=== PATIENT | female | born 1980 | race Caucasian/White ===

== ENCOUNTER 2021-01-27 20:30 | Emergency (ER) | payer OTHER ==
--- NOTE | 2021-01-27 20:52 | EDM.PDOC ---
ED HPI GENERAL MEDICAL PROBLEM - General Chief Complaint: Head Injury Stated Complaint: RIGHT FACIAL INJURY S/P SEIZURE Time Seen by Provider: 01/27/21 20:30 Source of Information: Reports: Patient, Family History Limitations: Reports: No Limitations - History of Present Illness INITIAL COMMENTS - FREE TEXT/NARRATIVE: Patient presents ambulatory for seizure and head/facial injury. Lives with family and was upstairs on the toilet when family heard a liliana thump. They found her unconscious on the floor of the bathroom and had just defecated. Had some general seizure activity and was post ictal for about 15 minutes. Typical pattern for her seizures. Patient has a seizure history on Topamax and Trileptal for this. Sees neurology and has had four seizures in the last month. She did call after the last several seizures and has appointment with neurology next month. Has been taking her medications, recent levels taken reveal normal levels. Has not been drinking alcohol, but smokes marijuana once weekly. Has been ill recently with an infected right lower tooth and is on clindamycin. Recently not sleeping well. Was recently hospitalized for mental health and was given zyprexa for breakthrough problems. Did take some this week. Feels " off" lately, dizzy at times. not ill, no fevers, vomiting, diarrhea or pain. Thinks her tetanus is up to date. Only pain is in the right orbital area. has some abrasions on the right great toe and the left fifth finger. small abrasion right upper lip. ambulating well Onset: Today, Sudden Duration: Minutes:, Resolved Prior to Arrival Location: Reports: Face Severity: Mild Associated Symptoms: Reports: Seizure Treatments HIDE CURER: Reports: NSAIDS Right Face/Facial Pain Score (Numeric/FACES): 9 - Related Data Allergies Allergy/AdvReac Type Severity Reaction Status Date / Time codeine Allergy unknown Verified 01/27/21 20:31 procaine [From Novocain] Allergy unknown Verified 01/27/21 20:31 Home Meds: Home Meds FLUoxetine [PROzac] 80 mg PO QAM 01/14/21 [History] LORazepam [Ativan] 0.5 mg PO BID PRN 01/14/21 [History] OLANZapine [Zyprexa] 5 mg PO Q6HR PRN 01/14/21 [History] OXcarbazepine [Trileptal] 300 mg PO BID 01/14/21 [History] Prazosin HCl [Prazosin] 2 mg PO BEDTIME 01/14/21 [History] Prazosin [Minpress] 1 mg PO BEDTIME 01/14/21 [History] SUMAtriptan succinate [Imitrex] 100 mg PO ASDIRECTED PRN 01/14/21 [History] Topiramate 25 mg PO BID 01/14/21 [History] Topiramate 100 mg PO BID 01/14/21 [History] hydrOXYzine pamoate [Vistaril] 25 mg PO QID PRN 01/14/21 [History] Clindamycin HCl 300 mg PO QID 01/27/21 [History] Past Medical History Neurological History: Reports: Seizure Psychiatric History: Reports: Anxiety, Depression Social & Family History - Alcohol Use Alcohol Use History: No Alcohol Use in Last Twelve Months: No - Recreational Drug Use Recreational Drug Use: No Drug Use in Last 12 Months: No Recreational Drug Type: Reports: Marijuana/Hashish ED ROS GENERAL - Review of Systems Review Of Systems: See Below HEENT: Reports: Dental Pain (rigth lower, improving on antibiotics), Eye Pain (periorbital from fall) Respiratory: Reports: No Symptoms. Denies: Shortness of Breath, Cough Cardiovascular: Reports: No Symptoms. Denies: Chest Pain, Blood Pressure Problem, Dyspnea on Exertion Endocrine: Reports: No Symptoms GI/Abdominal: Reports: No Symptoms. Denies: Abdominal Pain, Nausea, Vomiting : Denies: Discharge, Dysuria, Flank Pain Musculoskeletal: Denies: Neck Pain, Foot Pain, Muscle Pain, Muscle Stiffness Skin: Reports: Other (abrasion to right great toe, left fifth finger) Neurological: Reports: Dizziness, Seizure. Denies: Confusion, Syncope, Tremors, Trouble Speaking, Difficulty Walking Psychiatric: Reports: Mood Lability ED EXAM, HEAD INJURY - Physical Exam Exam: See Below Exam Limited By: No Limitations General Appearance: Alert, No Apparent Distress Head: Facial Ecchymosis, Facial Swelling (right orbital and zygomatic area with abrasion. no laceration, no step off) Nexus Criteria: No: Posterior, Midline Cervical Tenderness, Evidence of Intoxication, Altered Level of Consciousness (resolved after seizure), Focal Neurological Deficit, Painful Distraction Injuries Eyes: Right Eye: Periorbital Changes (swelling and abrasion as documented above), Bilateral Eye: EOMI, PERRL Ears: Normal External Exam, Normal Canal, Hearing Grossly Normal, Normal TMs Nose: Normal Inspection, Normal Mucousa, No Blood. No: Septal Deformity, Septal Hematoma, Septal Perforation Throat/Mouth: Normal Voice, No Airway Compromise, Other (missing teeth, right lower molar with broken tooth at gum line. no abscess/. right upper lip with small abrasion ,not suturable). No: Muffled Voice, Pharyngeal Erythema, Tongue Swelling Neck: Non-Tender, Full Range of Motion, Normal Alignment, Normal Inspection. No: Limited Range of Motion, Painful Range of Motion, Paraspinous Muscle Tender, Spinous Processes Tender Respiratory: No Respiratory Distress, Lungs Clear, Normal Breath Sounds, No Accessory Muscle Use, Chest Non-Tender Cardiovascular: Normal Peripheral Pulses, Regular Rate, Rhythm, No Edema, No Murmur GI/Abdominal Exam: Normal Bowel Sounds, Soft, Non-Tender, No Abnormal Bruit (Female) Exam: Deferred Back Exam: Normal Inspection, Full Range of Motion. No: CVA Tenderness (L), CVA Tenderness (R) Neurologic: sales account leader II-XII nml As Tested, No Motor/Sensory Deficits, Alert, Oriented x 3, Abnormal Cerebellar Tests (slight sway with pronator drift, difficult finger to nose bilaterally, but can achieve. Normal SHANTA, normal heel to lowry). No: Abnormal Gait Skin: Other (abrasions to the right great toe, dorsal surface, no limted ROM, no bleeding. small abrasion to the left 5th finger dorsal surface at PIP, no limted rom no active bleeding) - Amanda Coma Score Best Eye Response ([place]): (4) Open Spontaneously Best Verbal Response (Amanda): (5) Oriented Best Motor Response ([place]): (6) Obeys Commands Course - Vital Signs Last Recorded V/S: Last Vital Signs Temp 37.2 C 01/27/21 20:34 Pulse 85 01/27/21 21:28 Resp 16 01/27/21 20:34 BP 147/69 H 01/27/21 21:28 Pulse Ox 100 01/27/21 20:34 - Orders/Labs/Meds Orders: Active Orders 24 hr Category Date Time Status Head wo Cont [CT] Stat Exams 01/27/21 20:42 Taken Maxillofacial w/o CM [Max Facial Sinus wo Cont] [CT] Exams 01/27/21 20:42 Ordered Stat Labs: Laboratory Tests 01/27/21 01/27/21 01/27/21 Range/Units 20:54 20:54 21:05 WBC 10.4 H (4.0-10.2) K/uL RBC 4.65 (3.77-5.09) M/uL Hgb 12.4 (11.7-15.5) g/dL Hct 38.9 (34.0-46.0) % MCV 83.7 L (84.0-98.0) fL MCH 26.7 L (28.2-33.3) pg MCHC 31.9 (31.7-36.0) g/dL RDW 13.7 (11.2-14.1) % Plt Count 333 (150-350) K/uL Neut % (Auto) 72.1 (45.0-80.0) % Lymph % (Auto) 18.1 (10.0-50.0) % Ogle % (Auto) 7.3 (2.0-14.0) % Eos % (Auto) 2.2 (0.0-5.0) % Baso % (Auto) 0.3 (0.0-2.0) % Neut # (Auto) 7.53 H (1.40-7.00) K/uL Lymph # (Auto) 1.89 (0.50-3.50) K/uL Ogle # (Auto) 0.76 (0.00-1.00) K/uL Eos # (Auto) 0.23 (0.00-0.50) K/uL Baso # (Auto) 0.03 (0.00-0.20) K/uL Sodium 142 (136-145) mmol/L Potassium 4.0 (3.5-5.1) mmol/L Chloride 107 (98-107) mmol/L Carbon Dioxide 22.8 (21.0-32.0) mmol/L Anion Gap 12.2 (7-15) meq/L BUN 12 (7-18) mg/dL Creatinine 1.19 H (0.51-1.17) mg/dL Est Cr Clr Drug Dosing 66.60 mL/min Estimated GFR (MDRD) 50 mL/min Glucose 126 H (70-99) mg/dL Calcium 8.2 L (8.5-10.1) mg/dL Total Bilirubin 0.4 (0.2-1.0) mg/dL AST 14 L (15-37) U/L ALT 27 (12-78) U/L Alkaline Phosphatase 86 (46-116) IU/L Total Protein 7.2 (6.4-8.2) g/dL Albumin 3.2 L (3.4-5.0) g/dL TSH, Ultra Sensitive 1.343 (0.358-3.740) mIU/mL Specimen Type Urincc Urine Color Yellow Urine Appearance Slightly cloudy Urine pH 7.0 (5.0-9.0) Ur Specific [place] 1.025 (1.005-1.030) Urine Protein Negative (NEGATIVE) mg/dL Urine Glucose (UA) Negative (NEGATIVE) mg/dL Urine Ketones Negative (NEGATIVE) mg/dL Urine Occult Blood Large H (NEGATIVE) Urine Nitrite Negative (NEGATIVE) Urine Bilirubin Negative (NEGATIVE) Urine Urobilinogen 0.2 (0.2-1.0) E.U./dL Ur Leukocyte Esterase Negative (NEGATIVE) Urine RBC 40-50 H /HPF Urine WBC 0-5 /HPF Ur Epithelial Cells Few /LPF Amorphous Sediment Few (0/HPF) /HPF Urine Bacteria Few (NONE TO FEW) /HPF Urine Opiates Screen (NEGATIVE) Ur Buprenorphine Scrn (NEGATIVE) Ur Oxycodone Screen (NEGATIVE) Ur EDDP (Meth Metab) (NEGATIVE) Ur Barbiturates Screen (NEGATIVE) Ur Tricyclics Screen (NEGATIVE) Ur Amphetamine Screen (NEGATIVE) U Methamphetamines Scrn (NEGATIVE) Urine MDMA Screen (NEGATIVE) U Benzodiazepines Scrn (NEGATIVE) U Cocaine Metab Screen (NEGATIVE) U Marijuana (THC) Screen (NEGATIVE) Ethyl Alcohol 0.003 (0.000-0.080) g/dL 01/27/21 Range/Units 21:05 WBC (4.0-10.2) K/uL RBC (3.77-5.09) M/uL Hgb (11.7-15.5) g/dL Hct (34.0-46.0) % MCV (84.0-98.0) fL MCH (28.2-33.3) pg MCHC (31.7-36.0) g/dL RDW (11.2-14.1) % Plt Count (150-350) K/uL Neut % (Auto) (45.0-80.0) % Lymph % (Auto) (10.0-50.0) % Ogle % (Auto) (2.0-14.0) % Eos % (Auto) (0.0-5.0) % Baso % (Auto) (0.0-2.0) % Neut # (Auto) (1.40-7.00) K/uL Lymph # (Auto) (0.50-3.50) K/uL Ogle # (Auto) (0.00-1.00) K/uL Eos # (Auto) (0.00-0.50) K/uL Baso # (Auto) (0.00-0.20) K/uL Sodium (136-145) mmol/L Potassium (3.5-5.1) mmol/L Chloride (98-107) mmol/L Carbon Dioxide (21.0-32.0) mmol/L Anion Gap (7-15) meq/L BUN (7-18) mg/dL Creatinine (0.51-1.17) mg/dL Est Cr Clr Drug Dosing mL/min Estimated GFR (MDRD) mL/min Glucose (70-99) mg/dL Calcium (8.5-10.1) mg/dL Total Bilirubin (0.2-1.0) mg/dL AST (15-37) U/L ALT (12-78) U/L Alkaline Phosphatase (46-116) IU/L Total Protein (6.4-8.2) g/dL Albumin (3.4-5.0) g/dL TSH, Ultra Sensitive (0.358-3.740) mIU/mL Specimen Type Urine Color Urine Appearance Urine pH (5.0-9.0) Ur Specific [place] (1.005-1.030) Urine Protein (NEGATIVE) mg/dL Urine Glucose (UA) (NEGATIVE) mg/dL Urine Ketones (NEGATIVE) mg/dL Urine Occult Blood (NEGATIVE) Urine Nitrite (NEGATIVE) Urine Bilirubin (NEGATIVE) Urine Urobilinogen (0.2-1.0) E.U./dL Ur Leukocyte Esterase (NEGATIVE) Urine RBC /HPF Urine WBC /HPF Ur Epithelial Cells /LPF Amorphous Sediment (0/HPF) /HPF Urine Bacteria (NONE TO FEW) /HPF Urine Opiates Screen Negative (NEGATIVE) Ur Buprenorphine Scrn Negative (NEGATIVE) Ur Oxycodone Screen Negative (NEGATIVE) Ur EDDP (Meth Metab) Negative (NEGATIVE) Ur Barbiturates Screen Negative (NEGATIVE) Ur Tricyclics Screen Negative (NEGATIVE) Ur Amphetamine Screen Negative (NEGATIVE) U Methamphetamines Scrn Negative (NEGATIVE) Urine MDMA Screen Negative (NEGATIVE) U Benzodiazepines Scrn Positive H (NEGATIVE) U Cocaine Metab Screen Negative (NEGATIVE) U Marijuana (THC) Screen Negative (NEGATIVE) Ethyl Alcohol (0.000-0.080) g/dL - Radiology Interpretation Free Text/Narrative:: Head CT and maxillofacial ct interpreted by Radiologist are negative for acute change. Scalp hematoma noted right orbital area. Chronic sinus change right maxillary sinus. - Re-Assessments/Exams Free Text/Narrative Re-Assessment/Exam: 01/27/21 21:05 Patient is back to normal baseline according to family. NO neck tenderness. Swelling around the right orbit. Will get head and maxillofacial CT without. Labs to check for metabolic problems. However, zyprexa can alter her seizure threshold, along with lack of sleep and marijuana. On clindamycin, which may alter levels also. recent seizure medication levels were normal. 01/27/21 21:29 patient does relate that she is taking ativan to help her sleep every night. advised to avoid the zyprexa, work on better sleep pattern and follow up with neurology. tetanus 2013. Departure - Departure Time of Disposition: 21:55 Disposition: Home, Self-Care 01 Clinical Impression: Seizure, Facial contusion - Discharge Information *PRESCRIPTION DRUG MONITORING PROGRAM REVIEWED*: Not Applicable *COPY OF PRESCRIPTION DRUG MONITORING REPORT IN PATIENT SHREE: Not Applicable Instructions: Head Injury, Adult, [id number], Facial or Scalp Contusion, [id number], Seizure, Adult, [id number] Referrals: Anitra Garrido PA [Primary Care Provider] - Forms: ED Department Discharge Additional Instructions: You need to call neurology on Saturday and make sure they understand the increased frequency of your seizures. Avoid alcohol, illicit drugs, zyprexa in the meantime. Stay well hydrated and try to get adequate sleep. Ice the facial contusions. Tetanus was updated in 2013. This is good for 10 years. apply antibiotic ointment to the abrasions and watch for signs of infection Sepsis Event Note (ED) - Evaluation Sepsis Screening Result: No Definite Risk - Focused Exam Vital Signs: Vital Signs Temp Pulse Resp BP Pulse Ox 01/27/21 21:28 85 147/69 H 01/27/21 20:34 37.2 C 90 16 164/103 H 100 - My Orders Last 24 Hours: My Active Orders 01/27/21 20:42 Head wo Cont [CT] Stat Maxillofacial w/o CM [Max Facial Sinus wo Cont] [CT] Stat - Assessment/Plan Last 24 Hours: My Active Orders 01/27/21 20:42 Head wo Cont [CT] Stat Maxillofacial w/o CM [Max Facial Sinus wo Cont] [CT] Stat
[2021-01-27 21:25] LABS: BARBITURATE SCREEN,URINE NEGATIVE (NEGATIVE); BENZODIAZEPINES SCREEN,URINE POSITIVE (NEGATIVE); BUPRENORPHINE SCREEN,URINE NEGATIVE (NEGATIVE); EDDP,URINE SCREEN NEGATIVE (NEGATIVE); TCA SCREEN,URINE NEGATIVE (NEGATIVE); THC SCREEN,URINE 50 NG/ML NEGATIVE (NEGATIVE)
[2021-01-27 21:25] LABS: ANION GAP 12.2 meq/L (7-15)
== END 2021-01-27 22:05 | disposition home or self-care (01) ==
LOC: LL.ED 20:30
DX: R56.9 Unspecified convulsions (principal); S00.83XA Contusion of other part of head, initial encounter; S00.511A Abrasion of lip, initial encounter; S90.411A Abrasion, right great toe, initial encounter; S60.417A Abrasion of left little finger, initial encounter; Z88.5 Allergy status to narcotic agent; Z88.8 Allergy status to other drugs, medicaments and biological substances; Z79.899 Other long term (current) drug therapy; W18.30XA Fall on same level, unspecified, initial encounter; Y92.002 Bathroom of unspecified non-institutional (private) residence as the place of occurrence of the external cause
CPT/HCPCS: 36415; 70450; 70486; 80053; 80305-QW; 80307; 81001; 84443; 85025; 99284; 99284-25

== ENCOUNTER 2024-07-10 18:00 | Emergency (ER) | payer MEDICAID ==
[2024-07-10 18:39] LABS: BASOPHILS ABSOLUTE AUTO 0.04 K/uL (0.00-0.20); BASOPHILS PERCENT AUTO 0.6 % (0.0-2.0); EOSINOPHILS ABSOLUTE AUTO 0.16 K/uL (0.00-0.50); EOSINOPHILS PERCENT AUTO 2.3 % (0.0-5.0); HEMATOCRIT 44.1 % (34.0-46.0); HEMOGLOBIN 14.7 g/dL (11.7-15.5); IMMATURE GRAN ABSOLUTE AUTO 0.05 10^3/uL (0.00-0.04); IMMATURE GRAN PERCENT AUTO 0.7 % (0.0-0.4); LYMPHOCYTES ABSOLUTE AUTO 3.25 K/uL (0.50-3.50); LYMPHOCYTES PERCENT AUTO 46.8 % (10.0-50.0); MEAN CORPUSCULAR HEMOGLOBIN 28.2 pg (28.2-33.3); MEAN CORPUSCULAR HGB CONC 33.3 g/dL (31.7-36.0); MEAN CORPUSCULAR VOLUME 84.6 fL (84.0-98.0); MONOCYTES ABSOLUTE AUTO 0.61 K/uL (0.00-1.00); MONOCYTES PERCENT AUTO 8.8 % (2.0-14.0); NEUTROPHILS ABSOLUTE AUTO 2.84 K/uL (1.40-7.00); NEUTROPHILS PERCENT AUTO 40.8 % (45.0-80.0); PLATELET COUNT,PLT 225 K/uL (150-350); RED BLOOD CELL COUNT 5.21 M/uL (3.77-5.09); RED CELL DISTRIBUTION WIDTH 12.2 % (11.2-14.1)
[2024-07-10 18:52] LABS: APPEARANCE,URINE SLIGHTLY CLOUDY; BILIRUBIN,URINE NEGATIVE (NEGATIVE); COLOR,URINE YELLOW; GLUCOSE,URINE NEGATIVE (NEGATIVE); KETONES,URINE NEGATIVE (NEGATIVE); LEUKOCYTE ESTERASE,URINE NEGATIVE (NEGATIVE); NITRITE,URINE NEGATIVE (NEGATIVE); OCCULT BLOOD,URINE NEGATIVE (NEGATIVE); PROTEIN,URINE NEGATIVE (NEGATIVE); UROBILINOGEN,URINE 0.2 E.U./dL (0.2-1.0)
[2024-07-10 19:00] LABS: ANION GAP 11.6 meq/L (7-15); BILIRUBIN TOTAL 0.2 mg/dL (0.2-1.0); CALCIUM 8.2 mg/dL (8.5-10.1); CARBON DIOXIDE,CO2 23.9 mmol/L (21.0-32.0); CREATININE 0.98 mg/dL (0.51-1.17); EST CRCL DRUG DOSING (CG) 78.39 mL/min; POTASSIUM,K 3.5 mmol/L (3.5-5.1); PROTEIN TOTAL,TP 6.8 g/dL (6.4-8.2)
[2024-07-10] MEDS: Sodium Chloride 0.9% 10 ML Syringe FLUSH PRN (19:37)
[2024-07-10] MEDS: Sodium Chloride 0.9% 1,000 ML IV ONE (19:37)
[2024-07-10] MEDS: Iopamidol 612 MG/ML 100 ML Bottle IVPUSH ONE (19:38)
[2024-07-10] MEDS: Acetaminophen 325 MG Tab PO ONE (19:38)
[2024-07-10] MEDS: Dicyclomine 20 MG Tab PO ONE ×2 (20:49→20:50)
[2024-07-10] MEDS: methylPREDNISolone Sodium Succinate 125 MG/2 ML SDV IVPUSH ONE (20:50)
[2024-07-10] MEDS: Take Home: traMADol 50 MG, 4 Tab Pack PO ONE (21:01)
[2024-07-10] MEDS: Take Home: predniSONE 20 MG, 4 Tab Pack PO ONE (21:02)
== END 2024-07-10 21:45 | disposition home or self-care (01) ==
LOC: LL.ED 18:00
DX: R10.84 Generalized abdominal pain (principal); M54.50 Low back pain, unspecified; E66.9 Obesity, unspecified; Z79.899 Other long term (current) drug therapy; Z88.6 Allergy status to analgesic agent; Z88.8 Allergy status to other drugs, medicaments and biological substances; Z68.42 Body mass index [BMI] 45.0-49.9, adult
CPT/HCPCS: 36415; 74177; 80053; 81003; 81025; 82150; 83605; 85025; 96361; 96374; 99284; 99284-25; A9270-GY; J2919; J7030; Q9967